=== PATIENT | male | born 1990 | race Caucasian/White ===

== ENCOUNTER 2018-11-12 11:09 | Emergency (ER) | payer BC ==
[~2018-11-12] VITALS: Ht 165.1 cm; Wt 67.6 kg
[2018-11-12 11:45] VITALS: BP 113/66
[2018-11-12] MEDS ORDERED: HYDROCODONE/APAP 5/325MG 1 EACH TABLET ONE (12:17)
[2018-11-12] MEDS ORDERED: HYDROCODONE/APAP 5/325MG 1 EACH TABLET PO ONE (12:30)
== END 2018-11-12 14:09 | disposition home or self-care (01) ==
LOC: ER 11:09
DX: S63.592A Other specified sprain of left wrist, initial encounter (principal); S63.591A Other specified sprain of right wrist, initial encounter; Z88.1 Allergy status to other antibiotic agents; V00.131A Fall from skateboard, initial encounter; Y93.51 Activity, roller skating (inline) and skateboarding; Y92.331 Roller skating rink as the place of occurrence of the external cause; Y99.8 Other external cause status
CPT/HCPCS: 29125; 73110 ×2; 73130; 99283; A4606